=== PATIENT | female | born 1985 | race Two or more races ===

== ENCOUNTER 2018-11-25 02:49 | Emergency (ER) | payer MEDICAID ==
[~2018-11-25] VITALS: Ht 165.1 cm; Wt 90.7 kg
[~2018-11-25 02:49] MED LIST: IBUPROFEN600 MG PO; VIBRAMYCIN100 MG ORAL
--- NOTE | 2018-11-25 02:49 | NUR ---
ED Nurse Note: @0246 pt is placed in tx 1 with rn at the bedside.
--- NOTE | 2018-11-25 02:52 | NUR ---
ED Nurse Note: PT MARIEL KENT 66 C/O HEARING VOICE. [employer] AT BEDSIDE. PT WAS PICKED UP FROM HOME. 5150 PLACED PER [employer]. PT STATES SHE TOOK METH PRIOR TO ARRIVAL.
--- NOTE | 2018-11-25 02:53 | NUR ---
ED Nurse Note: PT ARRIVED LOUD AND YELLING PROFANITY, PT IS RESTLESS. PT SAFELY PLACED IN TX1, PT HAS HAS NOTABLE BRUISES ON HER LOWER EXTREMITIES PRIOR TO ARRIVAL, SKIN IS INTACT. FOUND X1 INVOICING SPECIALIST AND X1 OLD REMOVABLE TOOTHBRUSH HEAD IN PTS PANTS.
--- NOTE | 2018-11-25 03:00 | NUR ---
ED Nurse Note: PT BELONGINGS PLACED IN LOCKER #2
--- NOTE | 2018-11-25 03:27 | Emergency Room Report ---
History of Present Illness General Chief Complaint: Behavioral Complaint Source: Patient, Law Enforcement Present Illness HPI Is a 32-year-old female with unknown psychiatric history. She was brought in by police with chief complaint of suicidal thoughts. She was placed on a 5150. Patient history is very erratic. Patient told me that she called 911 because the neighbor was yelling and there was a baby screaming. She said her phone was hacked and she cannot call 911. She was able to call 911 later. According to police, she said that she is hearing voices. Voices are currently telling her to hurt herself. She has no particular plan. Denies any alcohol or drugs. No nausea no vomiting. No fever or chills. No previous psychiatric hold. Allergies: Coded Allergies: No Known Allergies (Unverified , 09/10/12) Patient History Past Medical History: see triage record, old chart reviewed Past Surgical History: none Family History: none Social History: tobacco use Now: No Immunizations: other Reviewed Nursing Documentation: PMH: Agreed; PSxH: Agreed Nursing Documentation-PMH Past Medical History: No Stated History Review of Systems ENT: Denies: sore throat Cardiovascular: Denies: chest pain, palpitations Gastrointestinal/Abdominal: Denies: nausea, vomiting, diarrhea Musculoskeletal: Denies: back problems Skin: Denies: rash Psychiatric: Reports: hallucinations, suicidal/homicidal ideations Neurological: Denies: MANN, seizures All Other Systems: negative except mentioned in HPI Physical Exam Vital Signs Date Time Temp Pulse Resp B/P (MAP) Pulse Ox O2 Delivery O2 Flow Rate FiO2 11/25/18 02:46 98.2 104 18 170/88 (115) 98 Room Air Vitals with high blood pressure Sp02 EP Interpretation: reviewed, normal General Appearance: alert/responsive, no apparent distress, non-toxic Head: normocephalic, atraumatic Eyes: PERRL, EOMI ENT: oropharynx normal Neck: supple/symm/no masses Respiratory: effort normal, no rhonchi, no wheezing Cardiovascular: no murmur, gallop, rub Gastrointestinal: non-tender, no mass, non-distended, no rebound/guarding, normal bowel sounds Musculoskeletal: gait & station normal Neurologic: oriented x3, sensory intact, motor strength/tone normal Suicide Risk Assessment: Suicidal Ideation: Yes Had intent to initiate attempt: No Pt's plan for suicide attempt: No Has means to complete attempt: No Skin: no rash, normal palpation Medical Decision Making Diagnostic Impression: Primary Impression: Psychosis Qualified Codes: F23 - Brief psychotic disorder Additional Impressions: Suicidal ideations Methamphetamine abuse UTI (urinary tract infection) Qualified Codes: N30.00 - Acute cystitis without hematuria ER Course This patient presents with acute psychosis with suicidal thoughts. This most likely secondary to drug-induced psychosis. Unknown psychiatric history. Unknown schizophrenia history. Patient was placed on a 5150. She was uncooperative and agitated on arrival. I gave her Haldol and Ativan. She is sleeping comfortably now and more cooperative. Patient is medically clear for psychiatric evaluation. Lab Results Impression Labs unremarkable Last Vital Signs Date Time Temp Pulse Resp B/P (MAP) Pulse Ox O2 Delivery O2 Flow Rate FiO2 11/25/18 02:46 98.2 104 18 170/88 (115) 98 Room Air Status: improved Disposition: XFER TO PSYCH HOSP/UNIT Condition: Stable Roberto Carlos Sanchez MD Nov 25, 2018 03:27
[2018-11-25 03:28] LABS: BASOPHILS % (AUTO) 0.6 % (0.0-2.0); HEMATOCRIT 38.5 % (37.0-47.0); HEMOGLOBIN 13.3 G/DL (12.0-16.0); LYMPHOCYTES % (AUTO) 13.6 % (20.0-45.0); MEAN CORPUSCULAR VOLUME 90 FL (80-99); NEUTROPHILS % (AUTO) 78.7 % (45.0-75.0); PLATELET COUNT 348 K/UL (150-450); RED BLOOD COUNT 4.28 M/UL (4.20-5.40); RED CELL DISTRIBUTION WIDTH 11.3 % (11.6-14.8); WHITE BLOOD COUNT 11.2 K/UL (4.8-10.8)
[2018-11-25] MEDS ORDERED: LORazepam Inj 2mg/ml 1ml IM ONE (03:30)
[2018-11-25] MEDS ORDERED: Haloperidol 5mg/ml Inj IM ONE (03:30)
[2018-11-25 03:31] VITALS: BP 170/88
[2018-11-25 03:38] LABS: ANION GAP 11 mmol/L (5-15); BLOOD UREA NITROGEN 9 mg/dL (7-18); CALCIUM 9.2 MG/DL (8.5-10.1); CARBON DIOXIDE 26 MMOL/L (21-32); CHLORIDE 103 MMOL/L (98-107); CREATININE 0.9 MG/DL (0.55-1.30); POTASSIUM 3.4 MMOL/L (3.5-5.1); SODIUM 140 MMOL/L (136-145)
[2018-11-25 03:43] LABS: ALANINE AMINOTRANSFERASE 17 U/L (12-78); ALBUMIN 4.3 G/DL (3.4-5.0); ALBUMIN/GLOBULIN RATIO 1.3 (1.0-2.7); ALKALINE PHOSPHATASE 95 U/L (46-116); ASPARTATE AMINO TRANSFERASE 15 U/L (15-37); BILIRUBIN,TOTAL 0.5 MG/DL (0.2-1.0)
[2018-11-25 04:00] LABS: BILIRUBIN, URINE NEGATIVE (NEGATIVE); GLUCOSE, URINE (UA) NEGATIVE (NEGATIVE); KETONES,URINE 4+ (NEGATIVE); LEUKOCYTE ESTERASE ,URINE 2+ (NEGATIVE); NITRITE,URINE NEGATIVE (NEGATIVE); PH,URINE 7 (4.5-8.0); PROTEIN,URINE 1+ (NEGATIVE); UROBILINOGEN,URINE 1 MG/DL (0.0-1.0)
[2018-11-25 04:14] LABS: APPEARANCE,URINE SLIGHTLY CLOUDY; COLOR,URINE YELLOW
--- NOTE | 2018-11-25 04:45 | NUR ---
Note donalone in EDM - 11/25/18 at 0646 by DESIREE ED Nurse Note: PT IN BED RESTING, SITTING QUIETLY, PROVIDED PT WITH ADDITIONAL BLANKETS AND CUPS OF WATER. PT IS CALM AND COOPERATIVE. SHOWS NO ACUTES SIGNS OF DISTRESS. PAINS DENIES PAIN AT THIS TIME.
--- NOTE | 2018-11-25 04:45 | NUR ---
ED Nurse Note: PT IN BED RESTING, SITTING QUIETLY, PROVIDED PT WITH ADDITIONAL BLANKETS AND CUPS OF WATER. PT IS CALM AND COOPERATIVE. SHOWS NO ACUTES SIGNS OF DISTRESS. DENIES PAIN AT THIS TIME.
[2018-11-25 04:48] VITALS: BP 146/82
[2018-11-25] MEDS ORDERED: cefTRIAXone 1 GM in NS 55 ML IVPB ONE (05:00)
--- NOTE | 2018-11-25 05:45 | NUR ---
ED Nurse Note: PT IS CURRENTLY SLEEPING IN BED.
--- NOTE | 2018-11-25 06:33 | NUR ---
ED Nurse Note: PT STILL ASLEEP IN BED, AROUABLE, VSS.
--- NOTE | 2018-11-25 06:34 | NUR ---
ED Nurse Note: BED PLACED ON LOWEST SETTING, X2 SIDERAILS.
[2018-11-25 06:49] VITALS: BP 139/86
--- NOTE | 2018-11-25 07:06 | NUR ---
HAND-OFF: Report given to DOUG NICOLE.
[2018-11-25 07:10] VITALS: BP 128/83
--- NOTE | 2018-11-25 07:10 | NUR ---
ED Nurse Note: REPORT RECEIVED FROM DOUG DANIELS. PT SLEEPING PEACEFULLY IN BED IN NAD. AOX4. VSS. PT DENIES SI/HI. PT DENIES AUDITORY/VISUAL HALLUCINATIONS. PT ON 5150 HOLD AND IS AWAITING PLACEMENT IN PSYCH FACILITY. PRIMARY RN IS MIRI.
--- NOTE | 2018-11-25 07:56 | NUR ---
ED Nurse Note: PT REMAINS SLEEPING PEACEFULLY IN BED IN NAD, AOX4, AND EASILY AROUSABLE TO VOICE. BREAKFAST TRAY PROVIDED FOR PT.
--- NOTE | 2018-11-25 08:12 | NUR ---
ED Nurse Note: PT FINISHED 100% OF BREAKFAST AND REMAINS RESTING PEACEFULLY IN BED IN NAD.
--- NOTE | 2018-11-25 08:58 | NUR ---
ED Nurse Note: PT SLEEPING PEACEFULLY IN BED IN NAD, AOX4, EASILY AROUSABLE TO VOICE, CALM AND COOPERATIVE, VSS.
--- NOTE | 2018-11-25 09:57 | NUR ---
ED Nurse Note: PT SLEEPING PEACEFULLY IN BED IN NAD. AOX4. EASILY AROUSABLE TO VOICE. VSS.
--- NOTE | 2018-11-25 10:57 | NUR ---
ED Nurse Note: PT SLEEPING PEACEFULLY IN BED IN NAD, AOX4, EASILY AROUSABLE TO VOICE, CALM AND COOPERATIVE, VSS.
[2018-11-25 11:10] VITALS: BP 124/82
--- NOTE | 2018-11-25 11:58 | NUR ---
ED Nurse Note: PT AWAKE, AOX4. PT PROVIDED WITH LUNCH TRAY. PT PULLED OUT IV LINE BUT REMAINS CALM AND COOPERATIVE.
--- NOTE | 2018-11-25 12:35 | NUR ---
ED Nurse Note: KEVIN NAVARRO CALLED FOR PT REPORT. REPORT GIVEN TO DOUG KINSEY. PER DOUG KINSEY, FACILITY IS READY TO ACCEPT PT. RECEIVING RN INFORMED OF TRANSPORT ETA OF 1330.
--- NOTE | 2018-11-25 12:56 | NUR ---
ED Nurse Note: PT SLEEPING PEACEFULLY IN BED IN NAD. AOX4. EASILY AROUSABLE TO VOICE. PT CONSUMED 50% OF LUNCH.
--- NOTE | 2018-11-25 13:00 | NUR ---
ED Nurse Note: [employer] AT BEDSIDE. REPORT GIVEN TO EMS. PT TAKEN TO [facility] VIA AMBULANCE WITH ALL BELONGINGS ACCOMPANIED BY EMS. VSS.
[2018-11-25 13:01] VITALS: BP 121/78
== END 2018-11-25 13:06 ==
LOC: EDBD 02:49 → EMR 03:18
DX: F23 Brief psychotic disorder (principal); R45.851 Suicidal ideations; F15.10 Other stimulant abuse, uncomplicated; N30.00 Acute cystitis without hematuria
CPT/HCPCS: 36415; 80053; 80307; 80329; 81003; 81025; 85025; 87086; 96365; 96372; 99284; J0696; J1630

== ENCOUNTER 2018-12-04 22:43 | Emergency (ER) | payer MEDICAID ==
[~2018-12-04] VITALS: Ht 167.6 cm; Wt 127.0 kg
[2018-12-04 22:48] VITALS: BP 162/88
--- NOTE | 2018-12-04 22:48 | NUR ---
ED Nurse Note: Patient brought in by ambulance accompanied by [employer] from home c/o behavioral complaint, patient was placed on a 5150 hold due to being danger to others, at time of arrival patient has no suicidal ideations. patient is rambling about different things. patients skin intact, IV started on left ac 20 gauge, items placed on locker #2
--- NOTE | 2018-12-04 22:53 | Emergency Room Report ---
History of Present Illness General Chief Complaint: Behavioral Complaint Source: Patient Present Illness HPI This is a 33-year-old female brought in by police for chief complaint of suicidal thoughts and possible overdose. She was yelling and screaming at her apartment complex. People called 911. She told the roommate that she took a bunch of pills. Now she denies everything. She says she was working out. She was here last week with similar complaint and was placed on a 5150. Patient denies any nausea vomiting. [place] tired now. Denies any overdose. She states she has a couple of pills in her bag but did not take them. There were for anxiety and depression. Allergies: Coded Allergies: No Known Allergies (Unverified , 12/04/18) Patient History Past Medical History: see triage record, old chart reviewed, psych hx Past Surgical History: none Family History: none Social History: single Now: No Immunizations: other Reviewed Nursing Documentation: PMH: Agreed; PSxH: Agreed Nursing Documentation-PMH Past Medical History Deferred: Pt Cognitively Impaired Past Medical History: No History, Except For History Of Psychiatric Problem: Yes - meth and bipolar Review of Systems ENT: Denies: sore throat Cardiovascular: Denies: chest pain, palpitations Gastrointestinal/Abdominal: Denies: nausea, vomiting, diarrhea Musculoskeletal: Denies: back problems Skin: Denies: rash Neurological: Denies: MANN, seizures All Other Systems: negative except mentioned in HPI Physical Exam Vital Signs Date Time Temp Pulse Resp B/P (MAP) Pulse Ox O2 Delivery O2 Flow Rate FiO2 12/04/18 22:48 105 22 185/105 (131) 95 Room Air Vitals with high blood pressure Sp02 EP Interpretation: reviewed, normal General Appearance: alert/responsive, no apparent distress, non-toxic Head: normocephalic, atraumatic Eyes: PERRL, EOMI ENT: oropharynx normal Neck: supple/symm/no masses Respiratory: effort normal, no rhonchi, no wheezing Cardiovascular: no murmur, gallop, rub Gastrointestinal: non-tender, no mass, non-distended, no rebound/guarding, normal bowel sounds Musculoskeletal: gait & station normal Neurologic: oriented x3, sensory intact, motor strength/tone normal Skin: no rash, normal palpation Medical Decision Making Diagnostic Impression: Primary Impression: Behavioral disorder Additional Impressions: Suicidal ideations Psychosis Qualified Codes: F23 - Brief psychotic disorder Substance abuse ER Course Patient presents with acute psychosis. Probably drug-induced. She also expressed suicidal thoughts and depression to other people. Patient is medically clear for psychiatric evaluation. She is placed on a 5150 by police. Lab Results Impression Labs unremarkable Last Vital Signs Date Time Temp Pulse Resp B/P (MAP) Pulse Ox O2 Delivery O2 Flow Rate FiO2 12/04/18 22:48 105 22 185/105 (131) 95 Room Air Status: improved Disposition: XFER TO PSYCH HOSP/UNIT Condition: Stable Roberto Carlos Sanchez MD Dec 04, 2018 22:53
[2018-12-04 23:23] LABS: APPEARANCE,URINE CLEAR; BILIRUBIN, URINE NEGATIVE (NEGATIVE); COLOR,URINE PALE YELLOW; GLUCOSE, URINE (UA) NEGATIVE (NEGATIVE); KETONES,URINE NEGATIVE (NEGATIVE); LEUKOCYTE ESTERASE ,URINE 1+ (NEGATIVE); NITRITE,URINE NEGATIVE (NEGATIVE); PH,URINE 6.5 (4.5-8.0); PROTEIN,URINE NEGATIVE (NEGATIVE); UROBILINOGEN,URINE NORMAL MG/DL (0.0-1.0)
[2018-12-04 23:30] LABS: BASOPHILS % (AUTO) 0.7 % (0.0-2.0); EOSINOPHILS % (AUTO) 0.1 % (0.0-3.0); HEMATOCRIT 40.3 % (37.0-47.0); HEMOGLOBIN 13.8 G/DL (12.0-16.0); LYMPHOCYTES % (AUTO) 12.4 % (20.0-45.0); MEAN CORPUSCULAR VOLUME 90 FL (80-99); MONOCYTES % (AUTO) 5.3 % (1.0-10.0); NEUTROPHILS % (AUTO) 81.5 % (45.0-75.0); PLATELET COUNT 328 K/UL (150-450); RED BLOOD COUNT 4.48 M/UL (4.20-5.40); RED CELL DISTRIBUTION WIDTH 11.5 % (11.6-14.8); WHITE BLOOD COUNT 13.7 K/UL (4.8-10.8)
--- NOTE | 2018-12-04 23:33 | NUR ---
ED Nurse Note: Requested sitter from Nursing Sales Office Assistant.
[2018-12-04 23:40] LABS: ANION GAP 13 mmol/L (5-15); BLOOD UREA NITROGEN 12 mg/dL (7-18); CALCIUM 9.1 MG/DL (8.5-10.1); CARBON DIOXIDE 24 MMOL/L (21-32); CHLORIDE 106 MMOL/L (98-107); CREATININE 1.1 MG/DL (0.55-1.30); POTASSIUM 3.7 MMOL/L (3.5-5.1); SODIUM 143 MMOL/L (136-145)
[2018-12-04 23:44] LABS: ALANINE AMINOTRANSFERASE 25 U/L (12-78); ALBUMIN 4.1 G/DL (3.4-5.0); ALBUMIN/GLOBULIN RATIO 0.9 (1.0-2.7); ALKALINE PHOSPHATASE 102 U/L (46-116); ASPARTATE AMINO TRANSFERASE 16 U/L (15-37); BILIRUBIN,TOTAL 0.4 MG/DL (0.2-1.0)
--- NOTE | 2018-12-05 00:05 | NUR ---
ED Nurse Note: Patient moved to OB
[2018-12-05] MEDS ORDERED: Haloperidol 5mg/ml Inj IM ONE (01:15)
--- NOTE | 2018-12-05 01:15 | NUR ---
ED Nurse Note: Patient is not staying in bed, Patient stated "i need morphine". patient did not cooprate with staff, order for haldol received.
--- NOTE | 2018-12-05 01:52 | NUR ---
ED Nurse Note: Gave report to Sydney, states that she will call back in 30 minutes
[2018-12-05 01:53] VITALS: BP 130/96
--- NOTE | 2018-12-05 02:53 | NUR ---
ED Nurse Note: Patient sleeping calmly in bed
--- NOTE | 2018-12-05 03:10 | NUR ---
ED Nurse Note: Patient left the unit accompanied by ambulance personnel, all belongings sent with patient. patient at no distress at this time.
[2018-12-05 03:11] VITALS: BP 133/68
== END 2018-12-05 03:10 ==
LOC: EDBD 22:43 → EMR 23:18
DX: R45.851 Suicidal ideations (principal); F23 Brief psychotic disorder; F19.10 Other psychoactive substance abuse, uncomplicated; F31.9 Bipolar disorder, unspecified; F41.9 Anxiety disorder, unspecified
CPT/HCPCS: 36415; 80053; 80307; 80329; 81003; 81025; 85025; 96372; 99285; J1630

== ENCOUNTER 2019-07-25 08:11 | Day surgery (SDC) | payer OTHER ==
[~2019-07-25] VITALS: Ht 167.6 cm; Wt 90.7 kg
[2019-07-25] VITALS (10 sets, daily range): BP systolic 92–123; BP diastolic 41–79
--- NOTE | 2019-07-25 07:30 | Pre-Procedure Note/Attestation ---
Pre-Procedure Note/Attestation Complete Prior to Procedure Planned Procedure: right Procedure Narrative: shoulder arthrscopy, sad Indications for Procedure Pre-Operative Diagnosis: right shoulder impingement Attestation I attest that I discussed the nature of the procedure; its benefits; risks and complications; and alternatives (and the risks and benefits of such alternatives ), prior to the procedure, with the patient (or the patient's legal hardware supplies sales representative). I attest that, if there was a reasonable possibility of needing a blood transfusion, the patient (or the patient's legal hardware supplies sales representative) was given the [facility] standardized written summary, pursuant to the [place] Blood Safety Act ([place] Health and Safety Code # 1645, as amended). I attest that I re-evaluated the patient just prior to the surgery and that there has been no change in the patient's H&P, except as documented below: Wes Valverde MD Jul 25, 2019 07:29
--- NOTE | 2019-07-25 07:30 | Operative Note - PDOC ---
Operative Note Operative Note Pre-op Diagnosis: right shoulder impingement Procedure: see op report Post-op Diagnosis: same as pre-op plus Operative Findings: consistent w/pre-op dx studies Anesthesia: MAC Specimen: none Complications: none Condition: stable Estimated Blood Loss: none Implant(s) used?: No Wes Valverde MD Jul 25, 2019 07:30
[~2019-07-25 08:11] MED LIST changes: +D5 1/2NS 1,000 ML IV SCH; +HYDROcodone/Acetamin 5/325 tab ORAL PRN; +HYDROmorphone 1mg/ml Carpuject SUBQ PRN; +Tylenol #3 tab (300mg/30mg) ORAL PRN; +ceFAZolin 1gm IVPB IVPB ONE; +celeBREX 200mg Cap **SURGERY PATIENTS ONLY ORAL ONE; +oxyCONTIN 20mg tab ORAL ONE
[2019-07-25] MEDS ORDERED: oxyCONTIN 20mg tab ORAL ONE (09:25)
[2019-07-25] MEDS ORDERED: Lidocaine 1% MPF 10mg/ml 5ml ONE (10:51)
[2019-07-25] MEDS ORDERED: Propofol 200mg/20ml IV ONE (10:51)
[2019-07-25] MEDS ORDERED: Ketorolac 30mg Inj ONE ×2 (10:51→11:10)
[2019-07-25] MEDS ORDERED: Midazolam 2mg/2ml Inj ONE (10:51)
[2019-07-25] MEDS ORDERED: fentaNYL 100 mcg/2 mL IV ONE (10:51)
[2019-07-25] MEDS ORDERED: Kenalog-40 1ml Vial ONE (11:10)
[2019-07-25] MEDS ORDERED: EPINEPHrine 1mg/1ml Amp ONE (11:10)
[2019-07-25] MEDS ORDERED: Ropivacaine 5mg/ml Vial 30ml INJ ONE (11:27)
[2019-07-25] MEDS ORDERED: Sterile Water Irrig 1000ml IRRIG ONE (12:00)
[2019-07-25] MEDS ORDERED: LR 1000ml ONE (12:00)
[2019-07-25] MEDS ORDERED: NS Irrig 2000ml IRRIG ONE (12:00)
[2019-07-25] MEDS ORDERED: LR 1000ml 1,000 ML IVLG SCH (12:46)
--- NOTE | 2019-07-25 12:46 | Anethesia Preoperative Eval ---
Anesthesia Pre-op PMH/ROS General Date of Evaluation: Jul 25, 2019 Time of Evaluation: 11:30 Anesthesiologist: Que ASA Score: ASA 2 Mallampati Score Class I : Soft palate, uvula, fauces, pillars visible Class II: Soft palate, uvula, fauces visible Class III: Soft palate, base of uvula visible Class IV: Only hard plate visible Mallampati Classification: Class II Surgeon: Abram Diagnosis: R shoulder pain Surgical Procedure: R shoulder scope Anesthesia History: none Family History: no anesthesia problems Allergies: Coded Allergies: MUSHROOM (Verified Allergy, Intermediate, rash, 07/25/19) NAPROXEN (Verified Allergy, Intermediate, rash, 07/25/19) Medications: see eMAR Patient NPO?: Yes Past Medical History Cardiovascular: Denies: HTN, CAD, ME, valve dz, arrhythmia, other Pulmonary: Denies: asthma, COPD, TANG, other Gastrointestinal/Genitourinary: Reports: GERD; Denies: CRI, ESRD, other Neurologic/Psychiatric: Reports: depression/anxiety, other - h/o active psychosis; Denies: dementia, CVA, TIA Endocrine: Denies: DM, hypothyroidism, steroids, other HEENT: Denies: cataract (L), cataract (R), glaucoma, NEZ PERCE (L), NEZ PERCE (R), other Hematology/Immune: Denies: anemia, DVT, bleeding disorder, other Musculoskeletal/Integumentary: Denies: OA, RA, DJD, DDD, edema, other Other: obesity PMH Narrative: as above PSxH Narrative: none Anesthesia Pre-op Phys. Exam Physician Exam Last Vital Signs Date Time Temp Pulse Resp B/P (MAP) Pulse Ox O2 Delivery O2 Flow Rate FiO2 07/25/19 10:01 97.5 52 18 105/59 97 Room Air Constitutional: NAD Neurologic: CN 2-12 intact Cardiovascular: RRR, no M/R/G Respiratory: CTA Gastrointestinal: S/NT/ND Airway Exam Mallampati Score: Class II MO: full Neck: short ROM: full Teeth: intact Dentures: no upper, no lower Anesthesia Pre-op A/P Labs see chart Urine Test Test 07/25/19 08:25 Urine HCG, Qualitative Negative (NEGATIVE) Studies Pre-op Studies: EKG - NSR Risk Assessment & Plan Assessment: ASA 2 Plan: Ga with LMA Status Change Before Surgery: No Pre-Antibiotics Drug: Ancef 1gr Given Within 1 Hr of Incision: Yes Time Given: 12:20 Pierce Grey MD Jul 25, 2019 12:46
[2019-07-25] MEDS ORDERED: Midazolam 2mg/2ml Inj IVP PRN (13:00)
[2019-07-25] MEDS ORDERED: Ketorolac 30mg Inj IV PRN (13:00)
[2019-07-25] MEDS ORDERED: Meperidine 25mg/0.5ml Inj (FOR RIGORS ONLY) IV PRN (13:00)
[2019-07-25] MEDS ORDERED: DiphenhydrAMINE 50mg/ml Inj IVP PRN (13:00)
[2019-07-25] MEDS ORDERED: Metoclopramide 10mg/2ml Inj IVP PRN (13:00)
--- NOTE | 2019-07-25 13:19 | Immediate Post-Op Evaluation ---
Immediate Post-Op Evalulation Immediate Post-Op Evalulation Procedure: R shoulder arthroscopy subacromion decompressuion Date of Evaluation: Jul 25, 2019 Time of Evaluation: 13:18 IV Fluids: 1000 Blood Products: none Estimated Blood Loss: min Urinary Output: none Blood Pressure Systolic: 104 Blood Pressure Diastolic: 56 Pulse Rate: 64 Respiratory Rate: 20 O2 Sat by Pulse Oximetry: 98 Temperature (Fahrenheit): 97.4 Pain Score (1-10): 1 Nausea: No Vomiting: No Complications none Patient Status: patent, none Hydration Status: adequate Pierce Grey MD Jul 25, 2019 13:19
--- NOTE | 2019-07-25 14:06 | 48 Hour Post Anesthesia Eval ---
Post Anesthesia Evaluation Procedure: R shoulder arthroscopy subacromion decompressuion Date of Evaluation: Jul 25, 2019 Time of Evaluation: 14:05 Blood Pressure Systolic: 110 0: 62 Pulse Rate: 68 Respiratory Rate: 20 Temperature (Fahrenheit): 97.6 O2 Sat by Pulse Oximetry: 98 Airway: patent Nausea: No Vomiting: No Pain Intensity: 1 Hydration Status: adequate Cardiopulmonary Status: stable Mental Status/LOC: patient returned to baseline Follow-up Care/Observations: n/a Post-Anesthesia Complications: none Follow-up care needed: ready to discharge Pierce Grey MD Jul 25, 2019 14:06
--- NOTE | 2019-07-25 18:00 | Operative Note - Dictated ---
DATE OF OPERATION: 07/25/2019 PREOPERATIVE DIAGNOSIS: Right shoulder impingement syndrome. POSTOPERATIVE DIAGNOSIS: Right shoulder impingement syndrome. PROCEDURE: 1. Right shoulder diagnostic arthroscopy. 2. Right shoulder subacromial decompression bursectomy. SURGEON: Wes Valverde M.D. ANESTHESIA: Interscalene with general. INDICATION FOR PROCEDURE: The patient is a pleasant 33-year-old female with continued right shoulder pain, difficulty with over head activities and nighttime pain. She elected to undergo right shoulder arthroscopy, possible subacromial decompression bursectomy. Risks, limitations, expectations, and complications of the procedure were discussed in detail. All questions addressed. DESCRIPTION OF PROCEDURE: After informed consent was obtained, the patient was brought to the operating room and placed the patient under interscalene general anesthesia. Right shoulder was prepped and draped in a sterile manner. Time-out was performed. Inferolateral stab incision was then made. Trocar was introduced into the glenohumeral joint. There was no chondral damage. The anterior labrum appeared to be intact along with the superior labrum. The biceps tendon had some erythema but was grossly intact. The undersurface of the rotator cuff appeared to be intact. There no loose bodies in the axillary pouch. Camera was then positioned in the subacromial space. There was hypertrophic bursal tissue. Lateral working portal was established. Undersurface of the acromion was identified. Acromioplasty was started from lateral to medial, completed from posterior to anterior. Once that was completed, the bursectomy was completed posteriorly. Once that was done, the instruments were removed. Portal sites were closed using 3-0 Monocryl sutures. The patient was awoken and taken to recovery room with stable vital signs. ESTIMATED BLOOD LOSS: None. COMPLICATIONS: None. SPECIMENS: None. Wes Valverde M.D. DR: Link JOB#: [id number] CC: NURY
== END 2019-07-25 14:50 | disposition home or self-care (01) ==
LOC: SUR 08:11
DX: M75.41 Impingement syndrome of right shoulder (principal); Z88.8 Allergy status to other drugs, medicaments and biological substances; K21.9 Gastro-esophageal reflux disease without esophagitis; F32.9 Major depressive disorder, single episode, unspecified; F41.9 Anxiety disorder, unspecified; E66.9 Obesity, unspecified; Z68.32 Body mass index [BMI] 32.0-32.9, adult
CPT/HCPCS: 29822; 81025; J0171; J0690; J1885; J2250; J2405; J2704; J2795; J3010; J3301; J7120; 94003; 94150